=== PATIENT | female | born 1980 ===

== ENCOUNTER 2018-06-19 08:35 | Outpatient (CLI) | payer OTHER ==
[~2018-06-19] VITALS: Ht 165.1 cm; Wt 68.0 kg
== END 2018-06-19 09:46 | disposition home or self-care (01) ==
LOC: OFIC 805 08:35
DX: R22.1 Localized swelling, mass and lump, neck (principal); J31.0 Chronic rhinitis; J34.2 Deviated nasal septum; J35.3 Hypertrophy of tonsils with hypertrophy of adenoids; K04.7 Periapical abscess without sinus